=== PATIENT | male | born 1990 | race Native Hawaiian/Other Pacific Islander ===

== ENCOUNTER 2017-12-13 10:03 | Emergency (ER) | payer SELFPAY ==
[2017-12-13 10:20] VITALS: O2SAT 100; BMI 23.7
[2017-12-13] MEDS ORDERED: Bacitracin 500 Units/gm Oint Foilpak UD ONE (11:34)
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
[2017-12-13 11:45] VITALS: BP 122/76; PULSE 74; RESP 18; TEMP 98.3
== END 2017-12-13 11:43 | disposition home or self-care (01) ==
LOC: C.ER 10:03
DX: S00.12XA Contusion of left eyelid and periocular area, initial encounter (principal); S00.31XA Abrasion of nose, initial encounter; Y08.89XA Assault by other specified means, initial encounter; Y92.9 Unspecified place or not applicable